=== PATIENT | female | born 1930 | race Caucasian/White ===

== ENCOUNTER 2016-10-06 19:06 | Inpatient (IN) | payer MEDICARE, OTHER ==
[2016-10-06] MEDS ORDERED: NS 0.9% 1000 ML* 1,000 ML IV ONE (19:47)
[2016-10-06 20:47] LABS: Comments Flag Yes; Hematocrit 21 % (35-47); Mean Corpuscular HGB Conc 31 g/dl (31-36); Mean Corpuscular Hemoglobin 22 pg (27-31); Mean Corpuscular Volume 71 fL (80-97); Mean Platelet Volume 7 um3 (7.4-10.4); Red Blood Count 2.91 10^6/ul (4.0-5.4); Red Cell Distribution Width 18 % (10.5-15); White Blood Count 10.5 10^3/ul (3.5-10.8)
[2016-10-06 20:48] LABS: Add Diff/Slide Review? Slide Review Added
[2016-10-06 20:49] LABS: Hemoglobin 6.4 g/dl (12.0-16.0)
[2016-10-06 20:52] LABS: Albumin 2.8 g/dL (3.2-5.2); BUN/Creatinine Ratio 26.2 (8-20); Calcium 9.2 mg/dL (8.6-10.3); EGFR African American 119.3 (>60); EGFR Non-African American 92.8 (>60); Potassium 4.2 mmol/L (3.5-5.0); Total Bilirubin 0.2 mg/dL (0.2-1.0); Total Protein 7.8 g/dL (6.4-8.9)
--- NOTE | 2016-10-06 21:44 | ED ---
Lisa Mata Rebecca, scribed for Marcial Ward on 10/06/16 at 1941 . Complex/Multi-Sys Presentation - HPI Summary HPI Summary: Pt is an 86 y/o F accompanied by her daughter who presents to ED for abnormal H/ H labs. Daughter reports that the pt's PCP called her today with the results of her lab work that was taken yesterday while at a visit for a reason unknown to the daughter and her H/H was 07/28. Pt denies melena, CP, SOB and abdominal pain. Pt is not on any blood thinners. - History Of Current Complaint Chief Complaint: EDGeneral Time Seen by Provider: 10/06/16 19:28 Hx Obtained From: Patient, Family/Repairer Evaporator - Daughter Onset/Duration: Still Present - Abnormal H/H labs Severity Currently: None Location: Negative Associated Signs And Symptoms: Positive: Other - Abnormal H/H labs. Negative: SOB, Chest Pain, Abdominal Pain, Melena - Allergies/Home Medications Allergies/Adverse Reactions: Allergies Allergy/AdvReac Type Severity Reaction Status Date / Time No Known Allergies Allergy Verified 10/06/16 19:09 PMH/Surg Hx/FS Hx/Imm Hx Endocrine/Hematology History: Reports: Hx Anemia Cardiovascular History: Reports: Hx Hypercholesterolemia GI History: Reports: Other GI Disorders - Hx prolapsed uterus Neurological History: Reports: Hx Transient Ischemic Attacks (TIA) - Surgical History Surgery Procedure, Year, and Place: RIGHT TOTAL HIP Infectious Disease History: No Infectious Disease History: Denies: Traveled Outside the [place] in Last 30 Days - Family History Known Family History: Positive: Diabetes - Social History Alcohol Use: Rare Alcohol Amount: ONCE A YEAR Substance Use Type: Reports: None Smoking Status (MU): Never Smoked Tobacco Have You Smoked in the Last Year: No Review of Systems Positive: Other - Abnormal H/H labs, drawn yesterday Negative: Chest Pain Negative: Shortness Of Breath Negative: Abdominal Pain Positive: other - NEGATIVE: melena All Other Systems Reviewed And Are Negative: Yes Physical Exam - Summary Physical Exam Summary: Appearance: Well appearing, no pain distress Skin: warm, dry, reflects adequate perfusion Head/face: normal Eyes: EOMI, JOSE, pale conjunctiva ENT: normal Neck: supple, nontender Respiratory: CTA, breath sounds present Cardiovascular: RRR, pulses symmetrical Abdomen: nontender, soft, prolapsed uterus Bowel: present Musculoskeletal: normal, strength/ROM intact Neuro: normal, sensory motor intact, A&Ox3 Triage Information Reviewed: Yes Vital Signs On Initial Exam: Initial Vitals Temp Pulse Resp BP Pulse Ox 98.1 F 85 14 136/61 98 10/06/16 19:11 10/06/16 19:11 10/06/16 19:11 10/06/16 19:11 10/06/16 19:11 Vital Signs Reviewed: Yes - Quinn Coma Scale Coma Scale Total: 15 Diagnostics - Vital Signs Vital Signs Temp Pulse Resp BP Pulse Ox 10/06/16 19:11 98.1 F 85 14 136/61 98 - Laboratory Result Diagrams: 10/06/16 20:27 10/06/16 20:27 Lab Statement: Any lab studies that have been ordered have been reviewed, and results considered in the medical decision making process. - EKG 2009 Cardiac Rate: NL - 82 bpm EKG Rhythm: Sinus Rhythm EKG Interpretation: LBBB Re-Evaluation - Re-Evaluation First Eval Re-Evaluation Time: 21:04 Comment: Discussed admission. Complex Multi-Symp Course/Dx Assessment/Plan: Pt is an 86 y/o F accompanied by her daughter who presents to ED for abnormal H/H labs. Daughter reports that the pt's PCP called her today with the results of her lab work that was taken yesterday while at a visit for a reason unknown to the daughter and her H/H was 6/21. Pt denies melena, CP, SOB and abdominal pain. Pt is not on any blood thinners. EKG is sinus rhythm with LBBB. Blood work done reveals Hgb of 6.4, Hct of 21. Discussed care of pt with Dr. Ordaz who accepts pt for admisison. She will be admitted with Dx of anemia and uterine prolapse. She understands and agrees. ELevated BP noted and advised to f/u with PCP. - Diagnoses Provider Diagnoses: Anemia, Prolapsed uterus - Physician Notifications Discussed Care Of Patient With: Truman Ordaz Time Discussed With Above Provider: 21:00 Instructed by Provider To: Other - Accepts pt for admission. Discharge - Discharge Plan Condition: Stable Disposition: ADMITTED TO [facility] Referrals: Woody Melendrez MD [Primary Care Provider] - The documentation as recorded by the Lisa manzano Rebecca accurately reflects the service I personally performed and the decisions made by me, Marcial Ward.
[2016-10-06 22:19] LABS: Urine Bacteria 1+ (Absent); Urine Bilirubin Negative (Negative); Urine Glucose Negative (Negative); Urine Nitrite Positive (Negative)
[2016-10-07] LABS: Corrected Retic Count 0.6 % (0.5-1.5); Immature Retic Fraction 0.43; Maturation Factor Retic 2.5
[2016-10-07 00:01] LABS: Comments Flag Yes
[2016-10-07 00:16] LABS: Total Iron Binding Capacity 196 mcg/dL (250-450); Transferrin 140 mg/dL (203-362)
[2016-10-07 00:22] LABS: Iron < 15 ug/dL (50-212)
[2016-10-07 00:33] LABS: Ferritin 147.2 ng/mL (11-307)
[2016-10-07 00:38] LABS: Vitamin B12 586 pg/mL (180-914)
--- NOTE | 2016-10-07 01:16 | HP ---
CC: [facility] * HISTORY AND PHYSICAL: DATE OF ADMISSION: 10/06/16 CHIEF COMPLAINT: Weakness. HISTORY OF PRESENT ILLNESS: The patient is an 86-year-old who was taken to her doctor at the [facility] yesterday by her daughter because she had been weak and looking pale. The patient had no other complaints. She denied chest pain or shortness of breath. She has noticed no black tarry stools. She noticed no blood in her stool. She has no nausea or vomiting. No fevers or chills. However, in her blood work, she was found to be profoundly anemic and sent over to the hospital for further evaluation. The patient does note she has a cancer, but she does not know where it is and did not want it worked up or pursued because of her age. PAST MEDICAL HISTORY: Significant for prolapsed uterus, TIA, hyperlipidemia, shingles, postherpetic neuropathy, hypokalemia, depression, anemia, questionable pancreatitis, questionable cancer, and left ankle ORIF. MEDICATIONS: Include a pain pill she does not know the name of and that is it. ALLERGIES: She has no known drug allergies. FAMILY HISTORY: Reviewed and noncontributory. SOCIAL HISTORY: No tobacco, alcohol, or recreational drug use. 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 Her daughter, Mckenzie Reynolds, is her healthcare proxy. She has 4 children. REVIEW OF SYSTEMS: A 14-point review of systems was completed with the patient , all pertinent positives and negatives in the history of present illness; otherwise it is negative. PHYSICAL EXAMINATION GENERAL: Very pleasant woman lying in bed, in no acute distress. VITAL SIGNS: Blood pressure 117/98, pulse ox 98%, respiratory rate 14 breaths a minute, heart rate 80 beats a minute, temperature is 98.1 degrees. HEENT: Normocephalic, atraumatic. Pupils are equal, round, and reactive to light. Moist mucous membranes. Pale conjunctivae. NECK: Supple. No JVD, bruits, palpable thyroid, or lymphadenopathy. CHEST: Clear to auscultation and percussion bilaterally CARDIOVASCULAR: S1 and S2 appreciated. ABDOMEN: Positive bowel sounds in all 4 quadrants. Soft, nontender, and nondistended. EXTREMITIES: No cyanosis, clubbing, or edema. +2 peripheral pulses bilaterally. NEUROLOGIC: Alert and oriented x3, moves all extremities. SKIN: Pale. LABORATORY DATA: White count is 11.5, hemoglobin 6.4, hematocrit 21, MCV is 71. Platelet count 673. Sodium 132, potassium 4.2, chloride 99, CO2 27, BUN 16 , creatinine 0.61, and glucose is 111. INR 1.21. Urinalysis is pending. EKG shows normal sinus rhythm at a rate of 82 beats per minute. Left bundle branch block pattern. ASSESSMENT AND PLAN: 1. Profound anemia, could be from a GI bleed. I will get a Hemoccult. I will check a TIBC, ferritin, iron, reticulocyte count, B12. I will transfuse 2 units. I will check H and H q.8 hours. The patient may not want endoscopy because she does not want to pursue anything aggressive. I will get the old records from [place] to see what kind of a tumor she has, but again she does not want any aggressive measures so we just might make her comfortable with this transfusion. 2. Prolapsed uterus. Again, she has had this for many years and does not want to treat it, so no further workup at this time. 3. FEN. Regular diet. 4. DVT prophylaxis. Sequential compression stockings. 5. The patient is a do not resuscitate. TIME SPENT: Over 80 minutes were spent on this H and P, more than 45 minutes of which was spent in direct [id number] contact with the patient in evaluation , physical exam, counseling, and coordination of care. [id number]/[facility] #: [id number] MTDD
[2016-10-07] MEDS: oxyCODONE/Acetamin 5/325 MG* TAB PO PRN ×3 (01:53→23:47)
[2016-10-07 04:43] LABS: Hematocrit 23 % (35-47); Hemoglobin 7.4 g/dl (12.0-16.0)
[2016-10-07 04:44] LABS: Comments Flag Yes
--- NOTE | 2016-10-07 10:41 | PN ---
Subjective Date of Service: 10/07/16 Interval History: Patient seen this morning. Initially concerned that no one has been checking in on her in the hospital room. Denies significant pain presently, has not noticed any red/dark stools. Says she is currently living at home with aides that come in 2 hours a day. Says she has been falling lately and recent PCP note states 4 times in past 3 weeks. Has been eating less. Has vulvar/vaginal cancer and uterine prolapse that she has declined further treatment for. At recent PCP appointment hospice/PC services were requested. Family History: Unchanged from Admission Social History: Unchanged from Admission Past Medical History: Unchanged from Admission Objective Active Medications: Oxycodone/Acetaminophen (Percocet 5/325 Tab*) 1 tab PO Q4H PRN PRN Reason: PAIN Last Admin: 10/07/16 01:53 Dose: 1 tab Vital Signs 10/06/16 10/06/16 10/06/16 22:30 23:26 23:41 Temperature 98.8 F 98.8 F Pulse Rate 78 75 75 Respiratory 19 18 18 Rate Blood Pressure 142/58 131/54 131/54 (mmHg) O2 Sat by Pulse 98 97 97 Oximetry 10/07/16 10/07/16 10/07/16 01:53 03:23 03:25 Temperature 98.6 F Pulse Rate 72 Respiratory 18 18 Rate Blood Pressure 110/44 (mmHg) O2 Sat by Pulse 98 Oximetry 10/07/16 10/07/16 09:25 09:45 Temperature 98.1 F 98.1 F Pulse Rate 69 70 Respiratory 18 18 Rate Blood Pressure 128/53 121/46 (mmHg) O2 Sat by Pulse 100 100 Oximetry Oxygen Devices in Use Now: None Appearance: Elderly, F, laying in bed in NAD Eyes: No Scleral Icterus Ears/Nose/Mouth/Throat: - - Dry MM Respiratory: Symmetrical Chest Expansion and Respiratory Effort, Clear to Auscultation Cardiovascular: NL Sounds; No Murmurs; No JVD, RRR Abdominal: - - Soft, NTND, BS+ Extremities: No Edema Skin: - - Prolapsed uterus with some excoriated areas, foul smell Neurological: Alert and Oriented x 3 Result Diagrams: 10/07/16 04:20 10/06/16 20:27 Assess/Plan/Problems-Billing Assessment: Symptomatic anemia, FTT in an 86 yo F with hx of vulvar cancer, uterine prolapse - Patient Problems (1) Anemia Current Visit: Yes Comment: Hb 6.4 on admission, 4 units of blood were ordered , 3rd unit just hung, will hold on 4th and check H/H after 3rd unit. Stool guaiac negative. Iron studies c/w ACD. (2) Failure to thrive Current Visit: Yes Comment: Attempted to contact daughter, left VM. Will get PC consult. (3) DVT prophylaxis Current Visit: Yes Comment: SCDs
[2016-10-07 13:29] LABS: Hematocrit 32 % (35-47); Hemoglobin 10.4 g/dl (12.0-16.0)
[2016-10-08] MEDS ORDERED: Docusate CAP* 100 MG PO PRN (10:13)
[2016-10-08] MEDS ORDERED: Polyethylene Glycol 3350* 17 GM PACKET PO PRN (10:17)
[2016-10-08] MEDS: oxyCODONE/Acetamin 5/325 MG* TAB PO PRN ×2 (11:34→19:37)
--- NOTE | 2016-10-08 12:50 | CONS ---
CC: Dr. Woody Melendrez* PALLIATIVE CARE CONSULTATION: DATE OF CONSULT: 10/08/16. PRIMARY CARE PHYSICIAN: Dr. Woody Melendrez. REFERRING PHYSICIAN: Asael Freitas MD. 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 Patient was seen by her primary care physician's office on the for weakness and decrease in appetite. The primary care noted that she has had several falls over the past month and walks with 2 canes from one room to the other. She also has had a significant decrease in her appetite for the past 4-5 weeks and has no taste for any foods. She was also having some abdominal discomfort as well. At that time, the primary care physician ordered labs and abdominal ultrasound, was concerned for anemia based on her pale appearance, and was discussing possible transfer to an assisted living facility. Shortly thereafter that visit, the patient as mentioned was brought to the emergency room. On arrival to the ER, her blood workup showed an H and H of 6.4/21. Her albumin was 2.8 on admission. She was given 3 units of blood and admitted for further evaluation. Patient is noted to have a significant uterine prolapse and is having some blood in her Depends from this. She is Hemoccult negative. When speaking with her, she states that she denies having any bleeding. She states that her legs are stiff and her knees would not move and that is why she has been falling a cannot walk. She states she does not know if she was having any pain. She does have some issues with constipation. When asked why she is here, she stated because she cannot walk. She denies being lightheaded or dizzy, but she did state that she laid on the floor all night before she was brought into the emergency room. I did speak to her at length regarding my concern for her safety going back home without 24-hour care. She does not want to go to a mcc. She is living at her house for more than 50 years. We are going to have Physical Therapy evaluate her as well. I did speak with her primary healthcare proxy who is her daughter Mckenzie Queen who states that she has not been doing well and she is concerned about her safety at home, in that her mother asked to put her to bed at 3 p.m. for the night and no one had come until the morning to get her up and moving. Her daughter lives in [place] and she is not able to get out to see her as often as she would like. I did speak with her about resources for private aides depending on what PT shows versus going to a mcc versus a hospice residence as I do feel that patient is eligible for hospice with her vulvar squamous cell carcinoma as her principal diagnosis and secondary diagnosis of bleeding. I did speak with the patient and the daughter regarding palliative radiation to help control bleeding which could be an option for her. Otherwise, remaining review of systems is negative. PAST MEDICAL HISTORY: 1. Squamous cell carcinoma of the vulva diagnosed in February, status post 10 rounds of radiation. Patient declined surgery. 2. Arthritis. 3. Constipation. INPATIENT MEDICATIONS: Oxycodone/acetaminophen 1 tab p.o. q. 4 hours as needed. ALLERGIES: No known drug allergies. SOCIAL HISTORY: As mentioned, patient lives alone. She ambulates with 2 canes , increase of falls recently. She does state that she has some one come in for 2 hours in the morning and 2 hours in the afternoon. No history of tobacco, alcohol, or illicit drug use. 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 She has 3 children, Mckenzie Queen is her daughter that lives locally who is her primary healthcare proxy. MOLST form is DNR/DNI. FAMILY HISTORY: Reviewed. Noncontributory. REVIEW OF SYSTEMS: A 14-point review of systems was completed. All pertinent positives and negatives as mentioned in the HPI otherwise negative. PHYSICAL EXAMINATION: Vitals: Temp 98.5, pulse rate 72, respiratory rate 16, oxygen saturation 94% on room air, blood pressure 126/52. General: Frail, elderly pale female in no acute distress. HEENT: Head normocephalic. Eyes: Pupils equal and reactive. Anicteric. Oropharynx: Mucous membranes moist. Neck: Supple. No lymphadenopathy. Cardiac: Regular rate and rhythm. Soft systolic murmur heard throughout. Respiratory: Diminished breath sounds. No wheezing, rhonchi or rales. Abdomen some mild distension, soft, nontender. She has significant suprapubic tenderness with a prolapsed uterus with excoriated areas noted. No visible bleed seen in Depends. Extremities: No clubbing, cyanosis or edema. Neurologic: No gross or focal neurologic deficits. Alert and oriented x2, oriented to self and place. LABORATORY DATA: White count 10.5, hemoglobin/hematocrit 6.4/21 on admission; today it is 10.4/32, platelets 673. INR is 1.21. Sodium 132, potassium 4.2, chloride 99, bicarb 27, BUN 16, creatinine 0.61, albumin is 2.8. ASSESSMENT: This is an 86-year-old female with a past medical history of squamous cell carcinoma of the vulva who presented to the emergency room with falls and weakness, found to have significant anemia likely secondary to her cancer, status post 3 units of blood. Patient is eligible for hospice based on her squamous cell carcinoma of the vulva and secondary diagnosis of anemia with acute blood loss and malnutrition. I spoke with the patient and the daughter at length regarding disposition planning. They both want her to get at home if possible and is going to depend on what Physical Therapy says, but I suspect she is going to need 24-hour care. The daughter did not feel that she was hospice ready. I tried to remind her that may be it is that she just needs more resources in place for safety and then she will do well, but I suspect that she is hospice-appropriate. I did also speak with Dr. Cintron from Radiation Oncology to see if she is the candidate for palliative radiation for bleeding control. He is going to follow up with her today. I am also going to add in a bowel regimen for her and will have our social work and palliative care team follow up with disposition planning as well. Thank you for this consultation. We will follow along with you. PATIENT TIME: Greater than 100 minutes was spent doing this consultation, more than half the time spent in direct patient contact. [id number]/[facility] #: [id number] MAXINE
--- NOTE | 2016-10-08 14:52 | PN ---
Subjective Date of Service: 10/08/16 Interval History: Patient see this afternoon. Upset she cannot go home but understands reasoning. Seems to be resistant to the idea of any further RT. Family History: Unchanged from Admission Social History: Unchanged from Admission Past Medical History: Unchanged from Admission Objective Active Medications: Docusate Sodium (Colace Cap*) 100 mg PO BID PRN PRN Reason: CONSTIPATION Oxycodone/Acetaminophen (Percocet 5/325 Tab*) 1 tab PO Q4H PRN PRN Reason: PAIN Last Admin: 10/08/16 11:34 Dose: 1 tab Polyethylene Glycol/Electrolytes (Miralax*) 17 gm PO DAILY PRN PRN Reason: CONSTIPATION Senna (Senokot Tab*) 2 tab PO BEDTIME PRN PRN Reason: CONSTIPATION Vital Signs 10/07/16 10/07/16 10/07/16 15:32 15:53 20:00 Temperature 98.0 F Pulse Rate 73 Respiratory 22 22 18 Rate Blood Pressure 126/56 (mmHg) O2 Sat by Pulse 96 Oximetry 10/07/16 10/07/16 10/08/16 23:14 23:47 01:47 Temperature 99.2 F Pulse Rate 73 Respiratory 24 18 16 Rate Blood Pressure 130/55 (mmHg) O2 Sat by Pulse 93 Oximetry 10/08/16 10/08/16 10/08/16 03:34 07:47 08:00 Temperature 98.5 F Pulse Rate 72 73 Respiratory 12 22 18 Rate Blood Pressure 126/52 (mmHg) O2 Sat by Pulse 97 94 Oximetry 10/08/16 11:34 Temperature Pulse Rate Respiratory 18 Rate Blood Pressure (mmHg) O2 Sat by Pulse Oximetry Oxygen Devices in Use Now: None Appearance: Elderly, F, sitting in chair in NAD Eyes: No Scleral Icterus Ears/Nose/Mouth/Throat: Mucous Membranes Moist Neck: NL Appearance and Movements; NL JVP Cardiovascular: NL Sounds; No Murmurs; No JVD, RRR Abdominal: NL Sounds; No Tenderness; No Distention Result Diagrams: 10/07/16 13:19 10/06/16 20:27 Assess/Plan/Problems-Billing Assessment: Symptomatic anemia, FTT in an 86 yo F with hx of vulvar cancer, uterine prolapse - Patient Problems (1) Anemia Current Visit: Yes Comment: Responded to [facility], received 3 units. Stool guaiac negative. Iron studies c/w ACD. ?due to bleeding from uterine prolapse (2) Failure to thrive Current Visit: Yes Comment: Appreciate PC consult, patient likely qualifies for hospice due to vulvar/vaginal cancer. Dr. Manzano spoke with Dr. Cintron (Rad Onc) to evaluate the patient for palliative radiation. Continue PT, patient will probably require placement. (3) DVT prophylaxis Current Visit: Yes Comment: SCDs
--- NOTE | 2016-10-08 18:31 | PN ---
Hospitalist Progress Note Spoke with daughter, Mckenzie, on the phone who understands patient will likely need SNF or 24 hour care at home. Patient seems to have declined any additional RT when speaking with Dr. Cintron. Mckenzie will likely be visiting tomorrow. Will continue PT through the weekend.
[2016-10-08] MEDS ORDERED: Senna TAB PO PRN (21:00)
[2016-10-09] MEDS: oxyCODONE/Acetamin 5/325 MG* TAB PO PRN ×3 (02:17→23:59)
[2016-10-09 05:26] LABS: Urine Bacteria 1+ (Absent); Urine Bilirubin Negative (Negative); Urine Glucose Negative (Negative); Urine Nitrite Positive (Negative)
--- NOTE | 2016-10-09 07:07 | RADMED ---
RADIATION ONCOLOGY INPATIENT CONSULTATION NOTE: DATE OF CONSULT: 10/08/16 - ROOM #416 REFERRING PHYSICIAN: Dr. Lacy Manzano. DIAGNOSIS: Vaginal squamous cell carcinoma. HISTORY OF PRESENT ILLNESS: Ms. Nadine Carney is an 86-year-old woman with history of vaginal squamous cell carcinoma, status post prior external beam radiation therapy delivered under the care of Dr. Sanford in Radiation [facility]cology at [place]. She received 3000 cGy, completed 04/15/15 for palliation of bleeding. She is admitted to the hospital now with falls, weakness, and anemia, and Radiation Oncology consultation is placed for consideration of additional palliative treatment. PAST MEDICAL HISTORY: Vaginal cancer, as in history of present illness. Prolapsed uterus, hyperlipidemia, anemia. MEDICATIONS: As per the inpatient record. ALLERGIES: No known drug allergies. REVIEW OF SYSTEMS: A complete review of systems is as per the patient and she offers no other complaints. PHYSICAL EXAM: Limited at the patient's insistence. General: Awake, alert, and oriented. No acute distress. Normocephalic, atraumatic. Sclerae are anicteric. ASSESSMENT AND PLAN: Nadine Carney is an 86-year-old woman with vaginal squamous cell carcinoma, status post prior palliative radiation therapy completed April 2015. I did review her history as well as the prior treatment records from her radiation therapy in the [facility] system. She was relatively upset when I told her that I was here to see her to discuss additional radiation , as she attributes significant toxicity to radiation therapy in the past. Unfortunately, some of the impact she attributes to radiation, medically speaking, would seem unrelated by virtue of being outside the area of the treatment, for example, skin problems on her arms. We discussed the logistics and rationale for palliative radiation therapy, risks, benefits, and alternatives as well as the acute and long-term frequent and uncommon toxicities. I tried very hard to help her to understand that a short course of palliative radiation therapy could help with localized symptoms such as bleeding or pain, and would be unlikely to cause side effects outside the treatment area, although skin irritation as well as fatigue would be common as well as some potential for proctitis or cystitis, likely transient. She declined physical examination, so it is difficult for me to say the extent of the problem that she has. Her main concern voiced to me was future living arrangements, as she has been living alone, and freely admits that she is not able to maintain in that environment. She voiced strong opinion that she would not consider additional radiation treatment for any reason, and I did offer to speak to her family, and she declined that offer as well. If her feelings about the matter were to change, I would be happy to see her for further discussion or planning of radiation therapy, but she seems quite disinclined at this point. Thank you for giving me the opportunity to participate in the care of this very pleasant patient. [id number]/[facility] #: [id number] MAXINE
--- NOTE | 2016-10-09 11:27 | PN ---
Subjective Date of Service: 10/09/16 Interval History: Patient seen this morning. Reports some various chronic aches and pain that respond to pain medications. Declined any RT in discussion with Dr. Cintron yesterday. Understands it is not safe for her to go home at this point. Family History: Unchanged from Admission Social History: Unchanged from Admission Past Medical History: Unchanged from Admission Objective Active Medications: Docusate Sodium (Colace Cap*) 100 mg PO BID PRN Oxycodone/Acetaminophen (Percocet 5/325 Tab*) 1 tab PO Q4H PRN Polyethylene Glycol/Electrolytes (Miralax*) 17 gm PO DAILY PRN Senna (Senokot Tab*) 2 tab PO BEDTIME PRN Vital Signs 10/08/16 10/08/16 10/08/16 11:34 13:34 15:42 Temperature Pulse Rate 85 Respiratory 18 18 16 Rate Blood Pressure 112/49 (mmHg) O2 Sat by Pulse 98 Oximetry 10/08/16 10/08/16 10/08/16 19:37 19:40 19:54 Temperature 98.8 F Pulse Rate 90 Respiratory 16 20 20 Rate Blood Pressure 123/54 (mmHg) O2 Sat by Pulse 95 Oximetry 10/08/16 10/08/16 10/09/16 21:37 23:53 02:17 Temperature 98.5 F Pulse Rate 76 Respiratory 14 20 16 Rate Blood Pressure 122/57 (mmHg) O2 Sat by Pulse 93 Oximetry 10/09/16 10/09/16 10/09/16 03:29 04:17 07:18 Temperature 98.1 F Pulse Rate 76 Respiratory 20 22 22 Rate Blood Pressure 120/56 (mmHg) O2 Sat by Pulse 96 Oximetry 10/09/16 10/09/16 07:19 07:46 Temperature 98.4 F Pulse Rate 73 Respiratory 22 19 Rate Blood Pressure (mmHg) O2 Sat by Pulse 96 Oximetry Oxygen Devices in Use Now: None Appearance: Elderly, F, laying in bed in NAD Eyes: No Scleral Icterus Ears/Nose/Mouth/Throat: Mucous Membranes Moist Neck: NL Appearance and Movements; NL JVP, Trachea Midline Respiratory: Symmetrical Chest Expansion and Respiratory Effort, Clear to Auscultation Cardiovascular: NL Sounds; No Murmurs; No JVD, RRR Abdominal: NL Sounds; No Tenderness; No Distention Lymphatic: No Cervical Adenopathy Extremities: No Edema Skin: - - Prolapsed uterus with excoriated areas, foul smelling Neurological: - - Alert, oriented, no focal deficits Result Diagrams: 10/07/16 13:19 10/06/16 20:27 Assess/Plan/Problems-Billing Assessment: Symptomatic anemia, FTT in an 86 yo F with hx of vulvar cancer, uterine prolapse - Patient Problems (1) Anemia Current Visit: Yes Comment: Responded to PRBC, received 3 units. Stool guaiac negative. Iron studies c/w ACD. ?due to bleeding from uterine prolapse. Refusing any further treatment for uterus. (2) Failure to thrive Current Visit: Yes Comment: Appreciate PC consult, patient likely qualifies for hospice due to vulvar/vaginal cancer, not interested in radiation therapy. Continue PT, patient will require placement. (3) Bacteria in urine Current Visit: Yes Comment: No growth from prior culture. Seems unlikely we can get a clean sample with her prolapsed uterus, hold on any ABx. (4) DVT prophylaxis Current Visit: Yes Comment: SCDs
[2016-10-09] MEDS: Acetaminophen TAB* 325 MG PO PRN (20:52)
[2016-10-09] MEDS ORDERED: cefTRIAXone VIAL(*) 1,000 MG in NS 0.9% 50 ML* 50 ML IVPB SCH (21:00)
[2016-10-10] MEDS: oxyCODONE/Acetamin 5/325 MG* TAB PO PRN ×3 (08:18→20:41)
[2016-10-10] MEDS: Acetaminophen TAB* 325 MG PO PRN (15:56)
[2016-10-10] MEDS: Conjugated Estrogens VAG CM* 42.5 gm TUBE VAGINAL SCH (15:57)
[2016-10-10] MEDS: Amoxicillin/Clavulanate TAB* 875 MG PO SCH ×2 (16:16→20:42)
--- NOTE | 2016-10-10 17:04 | PN ---
Subjective Date of Service: 10/10/16 Interval History: Patient seen this afternoon. Says she feels weak. Did not eat lunch as chicken was too salty. Inquired about uterine prolapse, she denies pain there, declines any attempts at manual replacement/reduction. Family History: Unchanged from Admission Social History: Unchanged from Admission Past Medical History: Unchanged from Admission Objective Active Medications: Acetaminophen (Tylenol Tab*) 650 mg PO Q4H PRN Amoxicillin/Clavulanate Potassium (Augmentin Tab*) 875 mg PO BID EMI Docusate Sodium (Colace Cap*) 100 mg PO BID PRN Estrogens Conjugated (Premarin Vag Cream*) 1 applic VAGINAL DAILY EMI Oxycodone/Acetaminophen (Percocet 5/325 Tab*) 1 tab PO Q4H PRN Polyethylene Glycol/Electrolytes (Miralax*) 17 gm PO DAILY PRN Senna (Senokot Tab*) 2 tab PO BEDTIME PRN Vital Signs 10/09/16 10/09/16 10/09/16 18:10 18:16 18:23 Temperature 100.2 F 98.2 F 98.2 F Pulse Rate 91 78 Respiratory 20 Rate Blood Pressure (mmHg) O2 Sat by Pulse Oximetry 10/10/16 10/10/16 10/10/16 15:44 15:51 16:18 Temperature 100.4 F Pulse Rate 98 Respiratory 26 Rate Blood Pressure 123/50 (mmHg) O2 Sat by Pulse 94 94 Oximetry Oxygen Devices in Use Now: None Appearance: Elderly, F, laying in bed in NAD Eyes: No Scleral Icterus Ears/Nose/Mouth/Throat: Mucous Membranes Moist Neck: NL Appearance and Movements; NL JVP Respiratory: Symmetrical Chest Expansion and Respiratory Effort, Clear to Auscultation Cardiovascular: NL Sounds; No Murmurs; No JVD, RRR Abdominal: NL Sounds; No Tenderness; No Distention Lymphatic: No Cervical Adenopathy Extremities: - - Prolapsed uterus with excoriations, less odorous today Neurological: Alert and Oriented x 3 Result Diagrams: 10/07/16 13:19 10/06/16 20:27 Microbiology and Other Data: Microbiology 10/09/16 05:05 Urine Culture - Preliminary Urine Escherichia Coli Assess/Plan/Problems-Billing Assessment: Symptomatic anemia, FTT in an 86 yo F with hx of vulvar cancer, uterine prolapse - Patient Problems (1) Anemia Current Visit: Yes Comment: Responded to PRBC, received 3 units. Stool guaiac negative. Iron studies c/w ACD. ?due to bleeding from uterine prolapse. Refusing any further treatment for uterus. (2) Failure to thrive Current Visit: Yes Comment: Appreciate PC consult, patient likely qualifies for hospice due to vulvar/vaginal cancer, not interested in radiation therapy. Continue PT, patient will require placement. (3) Bacteria in urine Current Visit: Yes Comment: Now with low grade fevers. Wonder if there may be a component of infection from the uterus as well. Will switch to Augmentin. (4) DVT prophylaxis Current Visit: Yes Comment: SCDs
[2016-10-11] MEDS: oxyCODONE/Acetamin 5/325 MG* TAB PO PRN ×4 (00:44→20:15)
[2016-10-11] MEDS: Conjugated Estrogens VAG CM* 42.5 gm TUBE VAGINAL SCH (09:28)
[2016-10-11] MEDS: Amoxicillin/Clavulanate TAB* 875 MG PO SCH ×2 (09:28→20:15)
--- NOTE | 2016-10-11 16:14 | PN ---
Subjective Date of Service: 10/11/16 Interval History: Denies pain. No new c/o. Family History: Unchanged from Admission Social History: Unchanged from Admission Past Medical History: Unchanged from Admission Objective Active Medications: Acetaminophen (Tylenol Tab*) 650 mg PO Q4H PRN PRN Reason: FEVER/PAIN Last Admin: 10/10/16 15:56 Dose: 650 mg Amoxicillin/Clavulanate Potassium (Augmentin Tab*) 875 mg PO BID EMI Last Admin: 10/11/16 09:28 Dose: 875 mg Docusate Sodium (Colace Cap*) 100 mg PO BID PRN PRN Reason: CONSTIPATION Last Admin: 10/08/16 19:39 Dose: 100 mg Estrogens Conjugated (Premarin Vag Cream*) 1 applic VAGINAL DAILY EMI Last Admin: 10/11/16 09:28 Dose: 1 applic Iron Sucrose 200 mg/ Sodium (Chloride) 110 mls @ 110 mls/hr IVPB ONCE ONE Stop: 10/11/16 17:05 Oxycodone/Acetaminophen (Percocet 5/325 Tab*) 1 tab PO Q4H PRN PRN Reason: PAIN Last Admin: 10/11/16 10:32 Dose: 1 tab Polyethylene Glycol/Electrolytes (Miralax*) 17 gm PO DAILY PRN PRN Reason: CONSTIPATION Senna (Senokot Tab*) 2 tab PO BEDTIME PRN PRN Reason: CONSTIPATION Last Admin: 10/08/16 19:38 Dose: 2 tab Vital Signs 10/10/16 10/10/16 10/10/16 16:18 17:20 19:30 Temperature 99.4 F 98.9 F Pulse Rate 90 Respiratory 26 24 Rate Blood Pressure 143/67 (mmHg) O2 Sat by Pulse 94 98 Oximetry 10/10/16 10/10/16 10/10/16 20:30 20:41 22:41 Temperature Pulse Rate Respiratory 20 18 18 Rate Blood Pressure (mmHg) O2 Sat by Pulse Oximetry 10/10/16 10/11/16 10/11/16 23:43 00:44 02:44 Temperature 97.6 F Pulse Rate 84 Respiratory 16 18 18 Rate Blood Pressure 138/68 (mmHg) O2 Sat by Pulse 95 Oximetry 10/11/16 10/11/16 10/11/16 04:35 04:38 06:24 Temperature 98.4 F 98.4 F Pulse Rate 77 77 Respiratory 16 16 24 Rate Blood Pressure 120/54 120/54 (mmHg) O2 Sat by Pulse 95 95 Oximetry 10/11/16 10/11/16 10/11/16 08:00 08:03 08:24 Temperature 98.0 F Pulse Rate 82 Respiratory 17 20 17 Rate Blood Pressure 111/45 (mmHg) O2 Sat by Pulse 96 Oximetry 10/11/16 10/11/16 10/11/16 10:32 12:32 15:29 Temperature 98.1 F Pulse Rate 83 Respiratory 17 17 18 Rate Blood Pressure 118/59 (mmHg) O2 Sat by Pulse 96 Oximetry Oxygen Devices in Use Now: None Appearance: Alert, partly up in bed. Neutral affect. Looks comfortable. Abdominal: - - [id number] prolapse, varying colors, flattened psoteriorly from pressure on the bed. Neurological: Alert and Oriented x 3, NL Sensation Result Diagrams: 10/07/16 13:19 10/06/16 20:27 Microbiology and Other Data: Microbiology 10/09/16 05:05 Urine Culture - Preliminary Urine Escherichia Coli Assess/Plan/Problems-Billing Assessment: Symptomatic anemia, FTT in an 86 yo F with hx of vulvar cancer, uterine prolapse - Patient Problems (1) Anemia Current Visit: Yes Status: Acute Code(s): D64.9 - ANEMIA, UNSPECIFIED SNOMED Code(s): 859595294 Comment: Responded to PRBC, received 3 units. Stool guaiac negative. Iron studies equivocal. ?due to bleeding from uterine prolapse. Refusing any further treatment for uterus. As iron level was undetectable I will start iron sucrose tx 10/11 and order soluble transferrin receptor for 10/12. (2) Vaginal cancer Current Visit: Yes Status: Acute Comment: SHe had RT at [facility] 2015. She refused surgery. Dr. James Ross did a bx. She refused further RT here by Dr. Cintron and refused to let him examine her. (3) End of life care Current Visit: Yes Status: Acute Code(s): Z51.5 - ENCOUNTER FOR PALLIATIVE CARE SNOMED Code(s): 002795672 Comment: Needs max assist to transfer. Pt and family looking into home care. Meets Hospice criteria.
[2016-10-12 06:52] LABS: Hematocrit 29 % (35-47); Hemoglobin 9.6 g/dl (12.0-16.0); Mean Corpuscular HGB Conc 33 g/dl (31-36); Mean Corpuscular Hemoglobin 25 pg (27-31); Mean Corpuscular Volume 75 fL (80-97); Mean Platelet Volume 7 um3 (7.4-10.4); Red Blood Count 3.92 10^6/ul (4.0-5.4); Red Cell Distribution Width 21 % (10.5-15); White Blood Count 8.7 10^3/ul (3.5-10.8)
[2016-10-12 07:09] LABS: BUN/Creatinine Ratio 34.6 (8-20); Calcium 9.4 mg/dL (8.6-10.3); EGFR Non-African American 66.9 (>60); Potassium 4.3 mmol/L (3.5-5.0)
--- NOTE | 2016-10-12 08:56 | PN ---
Subjective Family History: Unchanged from Admission Social History: Unchanged from Admission Past Medical History: Unchanged from Admission Objective Active Medications: Acetaminophen (Tylenol Tab*) 650 mg PO Q4H PRN PRN Reason: FEVER/PAIN Last Admin: 10/10/16 15:56 Dose: 650 mg Amoxicillin/Clavulanate Potassium (Augmentin Tab*) 875 mg PO BID EMI Stop: 10/15/16 23:30 Last Admin: 10/11/16 20:15 Dose: 875 mg Docusate Sodium (Colace Cap*) 100 mg PO BID PRN PRN Reason: CONSTIPATION Last Admin: 10/08/16 19:39 Dose: 100 mg Estrogens Conjugated (Premarin Vag Cream*) 1 applic VAGINAL DAILY EMI Last Admin: 10/11/16 09:28 Dose: 1 applic Iron Sucrose 200 mg/ Sodium (Chloride) 110 mls @ 110 mls/hr IVPB ONCE ONE Stop: 10/14/16 08:59 Oxycodone/Acetaminophen (Percocet 5/325 Tab*) 1 tab PO Q4H PRN PRN Reason: PAIN Last Admin: 10/11/16 20:15 Dose: 1 tab Polyethylene Glycol/Electrolytes (Miralax*) 17 gm PO DAILY PRN PRN Reason: CONSTIPATION Senna (Senokot Tab*) 2 tab PO BEDTIME PRN PRN Reason: CONSTIPATION Last Admin: 10/08/16 19:38 Dose: 2 tab Vital Signs 10/11/16 10/11/16 10/11/16 10:32 12:32 15:29 Temperature 98.1 F Pulse Rate 83 Respiratory 17 17 18 Rate Blood Pressure 118/59 (mmHg) O2 Sat by Pulse 96 Oximetry 10/11/16 10/11/16 10/11/16 19:34 20:00 20:15 Temperature 99.5 F Pulse Rate 95 Respiratory 22 18 18 Rate Blood Pressure 135/61 (mmHg) O2 Sat by Pulse 98 Oximetry 10/11/16 10/11/16 10/12/16 22:15 23:33 02:29 Temperature 98.3 F 98.3 F Pulse Rate 85 85 Respiratory 20 14 14 Rate Blood Pressure 126/52 126/52 (mmHg) O2 Sat by Pulse 93 93 Oximetry 10/12/16 03:33 Temperature 97.9 F Pulse Rate 76 Respiratory 12 Rate Blood Pressure 120/50 (mmHg) O2 Sat by Pulse 94 Oximetry Oxygen Devices in Use Now: None Result Diagrams: 10/12/16 06:06 10/12/16 06:06 Microbiology and Other Data: Microbiology 10/09/16 05:05 Urine Culture - Preliminary Urine Escherichia Coli Assess/Plan/Problems-Billing Assessment: Symptomatic anemia, FTT in an 86 yo F with hx of vulvar cancer, uterine prolapse - Patient Problems (1) Anemia Current Visit: Yes Status: Acute Code(s): D64.9 - ANEMIA, UNSPECIFIED SNOMED Code(s): 394762064 Comment: Responded to PRBC, received 3 units. Stool guaiac negative. Iron studies equivocal. ?due to bleeding from uterine prolapse. Refusing any further treatment for uterus. As iron level was undetectable I will start iron sucrose tx 10/11 and order soluble transferrin receptor for 10/12. (2) Vaginal cancer Current Visit: Yes Status: Acute Comment: SHe had RT at [facility] 2015. She refused surgery. Dr. James Ross did a bx. She refused further RT here by Dr. Cintron and refused to let him examine her. (3) End of life care Current Visit: Yes Status: Acute Code(s): Z51.5 - ENCOUNTER FOR PALLIATIVE CARE SNOMED Code(s): 586525041 Comment: Needs max assist to transfer. Pt and family looking into home care. Meets Hospice criteria.
--- NOTE | 2016-10-12 09:05 | PN ---
Subjective Date of Service: 10/12/16 Interval History: C/O diarrhea, some pain. Family History: Unchanged from Admission Social History: Unchanged from Admission Past Medical History: Unchanged from Admission Objective Active Medications: Acetaminophen (Tylenol Tab*) 650 mg PO Q4H PRN PRN Reason: FEVER/PAIN Last Admin: 10/10/16 15:56 Dose: 650 mg Docusate Sodium (Colace Cap*) 100 mg PO BID PRN PRN Reason: CONSTIPATION Last Admin: 10/08/16 19:39 Dose: 100 mg Estrogens Conjugated (Premarin Vag Cream*) 1 applic VAGINAL DAILY EMI Last Admin: 10/11/16 09:28 Dose: 1 applic Iron Sucrose 200 mg/ Sodium (Chloride) 110 mls @ 110 mls/hr IVPB ONCE ONE Stop: 10/14/16 08:59 Oxycodone/Acetaminophen (Percocet 5/325 Tab*) 1 tab PO Q4H PRN PRN Reason: PAIN Last Admin: 10/11/16 20:15 Dose: 1 tab Polyethylene Glycol/Electrolytes (Miralax*) 17 gm PO DAILY PRN PRN Reason: CONSTIPATION Senna (Senokot Tab*) 2 tab PO BEDTIME PRN PRN Reason: CONSTIPATION Last Admin: 10/08/16 19:38 Dose: 2 tab Vital Signs 10/11/16 10/11/16 10/11/16 10:32 12:32 15:29 Temperature 98.1 F Pulse Rate 83 Respiratory 17 17 18 Rate Blood Pressure 118/59 (mmHg) O2 Sat by Pulse 96 Oximetry 10/11/16 10/11/16 10/11/16 19:34 20:00 20:15 Temperature 99.5 F Pulse Rate 95 Respiratory 22 18 18 Rate Blood Pressure 135/61 (mmHg) O2 Sat by Pulse 98 Oximetry 10/11/16 10/11/16 10/12/16 22:15 23:33 02:29 Temperature 98.3 F 98.3 F Pulse Rate 85 85 Respiratory 20 14 14 Rate Blood Pressure 126/52 126/52 (mmHg) O2 Sat by Pulse 93 93 Oximetry 10/12/16 03:33 Temperature 97.9 F Pulse Rate 76 Respiratory 12 Rate Blood Pressure 120/50 (mmHg) O2 Sat by Pulse 94 Oximetry Oxygen Devices in Use Now: None Appearance: Alert, partly up in bed. In fair spirits. Looks comfortable. Eyes: No Scleral Icterus Neck: NL Appearance and Movements; NL JVP, No Thyroid Enlargement, Masses Respiratory: Symmetrical Chest Expansion and Respiratory Effort, Clear to Auscultation, Clear to Percussion Cardiovascular: NL Sounds; No Murmurs; No JVD, RRR, No Edema, - Abdominal: NL Sounds; No Tenderness; No Distention, No Hepatosplenomegaly, - Extremities: No Edema, No Clubbing, Cyanosis, - Skin: No Rash or Ulcers, No Nodules or Sclerosis, - Neurological: Alert and Oriented x 3, NL Sensation Result Diagrams: 10/12/16 06:06 10/12/16 06:06 Microbiology and Other Data: Microbiology 10/09/16 05:05 Urine Culture - Preliminary Urine Escherichia Coli Assess/Plan/Problems-Billing Assessment: Symptomatic anemia, FTT in an 86 yo F with hx of vulvar cancer, uterine prolapse - Patient Problems (1) Anemia Current Visit: Yes Status: Acute Code(s): D64.9 - ANEMIA, UNSPECIFIED SNOMED Code(s): 406231685 Comment: Responded to PRBC, received 3 units. Stool guaiac negative. Iron studies equivocal. ?due to bleeding from uterine prolapse. Refusing any further treatment for uterus. As iron level was undetectable I started iron sucrose tx 10/11, second dose 10/14 ordered. Soluble transferrin receptor sent out 10/12. (2) Vaginal cancer Current Visit: Yes Status: Acute Comment: SHe had RT at [facility] 2015. She refused surgery. Dr. James Ross did a bx. She refused further RT here by Dr. Cintron and refused to let him examine her. (3) End of life care Current Visit: Yes Status: Acute Code(s): Z51.5 - ENCOUNTER FOR PALLIATIVE CARE SNOMED Code(s): 055324515 Comment: Needs max assist to transfer. Pt and family looking into home care. Meets Hospice criteria.
[2016-10-12] MEDS: Conjugated Estrogens VAG CM* 42.5 gm TUBE VAGINAL SCH (12:00)
[2016-10-12] MEDS: oxyCODONE/Acetamin 5/325 MG* TAB PO PRN (16:51)
[2016-10-13] MEDS: oxyCODONE/Acetamin 5/325 MG* TAB PO PRN ×2 (01:58→12:15)
[2016-10-13] MEDS: Conjugated Estrogens VAG CM* 42.5 gm TUBE VAGINAL SCH (10:42)
[2016-10-13 10:49] VITALS: BP 128/58
--- NOTE | 2016-10-13 11:13 | PN ---
Progress Note - Progress Note Date of Service: 10/13/16 Note: Time spent on discharge 45 minutes.
--- NOTE | 2016-10-13 11:49 | DS ---
CC: Dr. Melendrez DATE OF ADMISSION: 10/06/2016. DATE OF DISCHARGE: 10/13/2016. HISTORY OF PRESENT ILLNESS: This 86-year-old woman presented with weakness. She was looking pale. She had not noticed any bleeding, but actually she does have some bleeding from her pelvic mass. I think this is quite a chronic process. The rest of the history is detailed in the dictated admissi on note. The patient received 3 units of packed cells on 10/07/2016. Her hematocrit jacky from 21 to 32 and t hen fell to 29 on October 12. She was given 200 mg dose of iron sucrose. She is going to the [facility]. She is being started on Ferrous Gluconate one daily. She is symptomatic from her anemi a. It might be worth re- evaluating her to see if another dose of iron sucrose and/or a transfusion would be helpful. The radiation therapist was asked to see her; however, she refused to be examined by the radiation t herapist Dr. Cintron and she stated she would not have anymore radiation. She has had radiation in t he past. She has seen a Surgical Oncologist in [place]. I do not think she is interested in any type of therapy for her cancer. She would like to try rehabilitation first to see if she can get her strength back. Possibly now latoya t she has had a transfusion and is on iron therapy, this will be successful. FINAL DIAGNOSES: 1. Vaginal cancer. 2. Anemia. DISCHARGE MEDICATIONS: 1. Acetaminophen 650 mg every 4 hours prn. 2. Docusate 100 mg b.i.d. prn. 3. Ferrous Gluconate 324 mg daily. 4. Polyethylene Glycol 17 gm daily. 5. Oxycodone acetaminophen 5/325 one every 4 hours prn. [id number]/[facility] #: [id number]
[2016-10-14] MEDS ORDERED: Polyethylene Glycol 3350* 17 GM PACKET PO SCH (09:00)
[2016-10-14] MEDS ORDERED: Ferrous Gluconate TAB* 324 MG TAB PO SCH (09:00)
== END 2016-10-13 14:00 | DRG 755 ==
LOC: ED 19:06 → MED 22:17
PROVIDERS: ADMIT Internal Medicine; ATTEND Internal Medicine
PROC: 30233N1 Transfusion of Nonautologous Red Blood Cells into Peripheral Vein, Percutaneous Approach (ICD-10-PCS; principal; 2016-10-06)
DX: C51.9 Malignant neoplasm of vulva, unspecified (principal); E46 Unspecified protein-calorie malnutrition; C52 Malignant neoplasm of vagina; D50.0 Iron deficiency anemia secondary to blood loss (chronic); F32.9 Major depressive disorder, single episode, unspecified; R62.7 Adult failure to thrive; E78.5 Hyperlipidemia, unspecified; N81.4 Uterovaginal prolapse, unspecified; M19.90 Unspecified osteoarthritis, unspecified site; K59.00 Constipation, unspecified; Z66 Do not resuscitate; Z68.23 Body mass index [BMI] 23.0-23.9, adult
CPT/HCPCS: 36415; 80048; 80053; 81003; 81015; 82272; 82607; 82728; 83540; 83550; 83690; 84134; 84238; 85014; 85018; 85025; 85045; 85610; 85730; 86850; 86900; 86901; 86922; 87077; 87086; 87186; 87493; 93005; A9270-GY; J0696; J1756; P9040